=== PATIENT | female | born 1950 | race Caucasian/White ===

== ENCOUNTER → 2016-10-14 | Outpatient (CLI) | payer BC ==
[~2016-10-14] MED LIST: AMLO-110 PO; BENA20TA14 PO; CHOL200010; CITA20TA9 PO; DOCU-94 PO; LAMO100T16 PO; LEVO112T2 PO; OXYC1TAB3 PO; PANT40TA PO; PRAV40TA PO; QUET1TAB13 PO
[2016-10-14 13:37] LABS: BLOOD UREA NITROGEN 11 mg/dl (7-18); BUN/CREATININE RATIO 13.3 (10-20); CALCIUM 9.5 mg/dl (8.5-10.1); CARBON DIOXIDE 29 mmol/L (21-32); CHLORIDE 107 mmol/L (98-107); CREATININE 0.83 mg/dl (0.60-1.20); GLUCOSE 81 mg/dl (70-99); PHOSPHORUS 4.1 mg/dl (2.5-4.9); POTASSIUM 3.4 mmol/L (3.5-5.1); SODIUM 143 mmol/L (136-145)
== END | disposition home or self-care (01) ==
LOC: C.LABMFLN 10:18
PROVIDERS: ATTEND Family Medicine
DX: E87.6 Hypokalemia (principal)

== ENCOUNTER → 2017-03-14 | Outpatient (CLI) | payer BC ==
[~2017-03-14] MED LIST changes: +HYDR-5688 PO; -OXYC1TAB3 PO; +PRAV20TA2 PO; +SRQ/200 PO; +ZNTT/150 PO
--- NOTE | 2017-03-14 16:01 | MAMMOGRAPHY REPORT ---
BILATERAL DIGITAL SCREENING MAMMOGRAM WITH CAD: 03/14/2017 CLINICAL HISTORY: Routine screening. TECHNIQUE: Bilateral CC, MLO and XCCL views were obtained. Current study was also evaluated with a C Excelsoftuter Aided Detection (CAD) system. COMPARISON: Comparison is made to exams dated: 03/11/2016 mammogram, 01/24/2015 mammogram - [facility], 09/28/2014 mammogram, 09/25/2012 mammogram, 02/11/2011 mammogram, and 09/02/2010 kaur mogram. BREAST COMPOSITION: The tissue of both breasts is almost entirely fatty. FINDINGS: There are scattered bilateral benign-appearing round and punctate microcalcifications. No new suspicious mass, architectural distortion or cluster of microcalcifications is seen. IMPRESSION: ACR BI-RADS CATEGORY 1: NEGATIVE There is no mammographic evidence of malignancy. A 1 year screening mammogram is recommended. The pa tient will receive written notification of the results. Approximately 10% of breast cancers are not detected with mammography. A negative mammographic report should not delay biopsy if a clinically suggestive mass is present. Coco James M.D. ay/:03/14/2017 15:39:12 Pay Station Attendant: Aquilino ZHONG(R)(M), [facility] letter sent: Normal 1/2 BI-RADS Code: ACR BI-RADS Category 1: Negative
== END | disposition home or self-care (01) ==
LOC: C.MAMM 14:03
PROVIDERS: ATTEND Family Medicine
DX: Z12.31 Encounter for screening mammogram for malignant neoplasm of breast (principal)

== ENCOUNTER → 2017-05-19 | Outpatient (CLI) | payer BC ==
[2017-05-19 14:11] LABS: ALT/SGPT 25 U/L (12-78); AST/SGOT 20 U/L (15-37); BLOOD UREA NITROGEN 13 mg/dl (7-18); BUN/CREATININE RATIO 17.3 (10-20); CALCIUM 8.9 mg/dl (8.5-10.1); CARBON DIOXIDE 28 mmol/L (21-32); CHLORIDE 109 mmol/L (98-107); CREATININE 0.73 mg/dl (0.60-1.20); GLUCOSE 85 mg/dl (70-99); POTASSIUM 3.5 mmol/L (3.5-5.1); SODIUM 142 mmol/L (136-145); TOTAL IRON BINDING CAPACITY 313 mcg/dl (250-450)
[2017-05-19 14:13] LABS: ALB/GLOB RATIO 0.9 (0.9-2); ALKALINE PHOSPHATASE 85 U/L (45-117); FERRITIN 21.5 ng/ml (8.0-388.0)
[2017-05-19 14:48] LABS: THYROID STIMULATING HORMONE 2.69 uIu/ml (0.300-4.500)
== END | disposition home or self-care (01) ==
LOC: C.LABMFLN 07:48
PROVIDERS: ATTEND Family Medicine
DX: E03.9 Hypothyroidism, unspecified (principal); I10 Essential (primary) hypertension; Z98.84 Bariatric surgery status; E55.9 Vitamin D deficiency, unspecified

== ENCOUNTER → 2017-06-23 | Outpatient (CLI) | payer BC ==
--- NOTE | 2017-06-23 13:09 | DIAGNOSTIC IMAGING REPORT ---
VIDEO SWALLOW CLINICAL HISTORY: 67 years-old Female presenting with DYSPHAGIA, history of hiatal hernia and Schatzki's ring. TECHNIQUE: Video fluoroscopic evaluation of swallowing was performed in the AP and lateral projections in conjunction with speech pathology. The patient was administered various textures, including nectar-thick and thin liquid barium, a barium coated wafer, and barium pudding. COMPARISON: None. FINDINGS: There is normal hyoid excursion and epiglottic deflection. Mild residual noted in the hypopharynx, which cleared with additional swallows. Small anterior osteophytes at C6-7 exerts mild mass effect on the esophagus without evidence of an impact on functional swallowing. Intraesophageal reflux upon administration of nectar thick liquids with a standing column noted in the upper esophagus. This resulted in regurgitation. At this point the study was terminated. Fluoroscopy dosage (mGy): Not available. Fluoroscopy time: 2.5 minutes. Number of fluoroscopic spot images: 0. IMPRESSION: 1. Early termination of the examination secondary to intraesophageal reflux and regurgitation. 2. Please see the speech pathologist report for detailed findings and recommendations. Electronically signed by: Grey Gustafson M.D. 06/23/2017 1:07 PM Dictated Date/Time: 06/23/2017 1:03 PM
--- NOTE | 2017-06-23 14:13 | SWALLOWING EVALUATION ---
HISTORY: This 67 year-old woman, from home, was referred for a VFSS at [facility] secondary to complaints of vomiting and only being able to consume minimal amounts. She states that she has been experiencing these issues for 8 months. She also states that she had a Bariatric Sleeve placed (date unknown). Other past medical history includes: GERD, HTN, thyroid disorder. EGD noted Hietal hernia with Schatzki's ring, erosion at GEJ, and past dilatation. Currently the patient's diet level is regular with thins she is very aware of GERD precautions and foods that are tolerable for her to consume. PROCEDURE: The patient was seen in the Radiology Department of [facility] for the VFSS. Cursory examination of the oral cavity revealed adequate dentition. Movement of the articulators was WNL. The patient was seated on a standard chair and was viewed in both the Anterior-Posterior (A-P) and Lateral planes. Volitional phonation exercises completed in the A-P plane revealed bilateral vocal fold movement and vocal intensity within functional limits. In the lateral plane, the patient was given the following barium-infused boluses: 1 tsp thin barium with oral hold 1x, self presented single cup swallow-thin barium 1x, self presented serial cup swallow 1x. 1 tsp nectar thick barium with oral hold 1x, self presented single cup swallow- nectar thick barium 1x, self presented serial cup swallows 1x. Esophageal scan was completed however no food was presented for this as it was remaining from previously accepted food items. *Testing was discontinued after nectar thick liquids were vomited secondary to retrograde flow through the PES. RESULTS: Oral Phase: Pt. had no labial escape of any food or liquid items presented. Pt. demonstrated a cohesive bolus between tongue and palatal seal. Timely and efficient chewing and mashing was observed with all consistencies as well as brisk tongue motion and complete oral clearance. Initiation of pharyngeal swallow began with bolus head in the valleculae. Overall WFL for oral phase of swallow. Pharyngeal Phase: Soft Palate Elevation was complete for all boluses. Laryngeal elevation was slightly reduced however movement of thyroid cartilage with complete approximation of arytenoids to epiglottic base. Anterior Hyoid excursion was WFL and complete epiglottic inversion noted. Laryngeal Vestibular closure was complete and a thin column of barium noted in laryngeal vestibule as well as on the valleculae. This was cleared with double swallow. Tongue base retraction was noted with all consistencies and tongue base made effective contact with posterior pharyngeal wall throughout study. Mild pharyngeal residue was observed and able to be cleared with double swallow. Overall WFL for pharyngeal phase of the swallow. Pt. did NOT aspirate or penetrate thins or nectar food items presented. Esophageal Phase: Opening and closing of the UES noted however retrograde flow through the PES was present. Pt. presented with Severe Esophageal dysfunction with violent retrograde motion resulting in vomiting. Radiology report indicates: Intraesophageal reflux upon administration of nectar thick liquids with a standing column noted in the upper esophagus. This resulted in regurgitation. At this point the study was terminated. SUMMARY/RECOMMENDATIONS: Overall pt. presented as WFL for oral-pharyngeal stages of the swallow. Testing was discontinues after nectar thick liquids were vomited secondary to violent retrograde flow through the PES. Recommendin. SLIPPERY moist regular diet with thin liquids. 2. GI Consult 3. GERD precautions - upright for 30 min after all intake, no intake 30 min before bed, keep head of bed elevated at least 30 degrees at all times, alternate consistencies. Pt. was given written GERD precautions and diet recommendations. GI consult is impetrative for pt. to continue to functionally accept oral intake. Thank you for referral of this patient. Please contact me at if any additional information is needed.
== END | disposition home or self-care (01) ==
LOC: C.RAD 11:08
PROVIDERS: ATTEND Internal Medicine Gastroenterology
DX: R13.10 Dysphagia, unspecified (principal); K21.9 Gastro-esophageal reflux disease without esophagitis; R11.10 Vomiting, unspecified

== ENCOUNTER 2017-07-15 13:19 | Emergency (ER) | payer BC ==
[~2017-07-15] VITALS: Ht 171.5 cm; Wt 116.5 kg
[~2017-07-15 13:19] MED LIST changes: -HYDR-5688 PO; -PRAV20TA2 PO; -SRQ/200 PO; -ZNTT/150 PO
[2017-07-15 13:21] VITALS: TEMP 37.1; Ht 171.5 cm; Wt 116.5 kg
[2017-07-15] MEDS ORDERED: ZNTT/150 PO (13:38)
[2017-07-15] MEDS ORDERED: PRAV20TA2 PO (13:38)
[2017-07-15] MEDS ORDERED: SRQ/200 PO (13:38)
--- NOTE | 2017-07-15 13:58 | DIAGNOSTIC IMAGING REPORT ---
R HAND MIN 3 VIEWS ROUTINE HISTORY: 67 years-old Female hand injury; attn little finger acute right hand injury with pain of the fifth digit COMPARISON: None available TECHNIQUE: 4 views of the right hand FINDINGS: Severe first carpometacarpal osteoarthritis is noted. Mild periarticular osteopenia. There is mild flexion of the interphalangeal joints which mildly limits the study. Acute mildly impacted fracture involves the proximal metaphyseal portion of the fifth proximal phalanx with moderate associated soft tissue swelling. There may be intra-articular extension of the fracture without significant displacement or angulation. IMPRESSION: 1. Acute nondisplaced mildly impacted fracture involves the base of the fifth proximal phalanx with possible intra-articular extension into the adjacent metacarpal phalangeal joint. 2. Degenerative changes as above with osteopenia. The above report was generated using voice recognition software. It may contain grammatical, syntax or spelling errors. Electronically signed by: Jose Seaman M.D. 07/15/2017 1:56 PM Dictated Date/Time: 07/15/2017 1:53 PM
[2017-07-15] MEDS ORDERED: HYDR-5688 PO (14:20)
[2017-07-15 14:26] VITALS: BP 156/92; PULSE 68; O2SAT 96
--- NOTE | 2017-07-15 18:18 | EMERGENCY ROOM VISIT NOTE ---
ED Visit Note First contact with patient: 13:21 Chief Complaint: I hurt my left little finger. History of Present Illness: Ms. Fernandez is a 67-year-old white female who ambulates into the ED accompanied by female friend complaining of left little finger pain. Patient reports less than an hour ago hurt dog came into the house and she notice his pulse was bleeding. She went to see what his injury was and placed her left hand under his collar. The dog twisted and injured her left little finger. Currently she is complaining of a severe throbbing and sharp pain over the proximal phalanx of the little finger. She rates her discomfort 10/10. Her pain is nonradiating. Her pain worsens with palpation and flexion and extension of the MCP and PIP joint of the little finger. She has not identified any alleviating factors related to the pain. She is not taken any medications for pain prior to arrival at the hospital. Associated with her pain she reports she has a tingling sensation through the left little finger. She denies any wrist pain, other hand pain, other finger pain. She also denies any previous significant injuries or surgeries the little finger. Review of Systems: As noted above in history of present illness. Past Medical History: Hypertension, hiatal hernia, status post cholecystectomy and gastric sleeve. Current Medications: Norvasc, Synthroid, Celexa, Colace, Lamictal, vitamins, Pravachol, Seroquel, Zantac. Allergies to Medications: Penicillin, propranolol, tetracycline. Social History: Patient is currently employed; she feels safe in her home environment; she denies tobacco and alcohol use. Physical Examination: Vital Signs: Date Time Temp Pulse Resp B/P (MAP) Pulse Ox O2 Delivery O2 Flow Rate FiO2 07/15/17 14:26 68 20 156/92 96 07/15/17 13:21 37.1 66 15 164/109 96 Room Air GENERAL: 67-year-old female in moderate distress due to pain, nontoxic-appearing , afebrile and hemodynamically stable. NEUROLOGICAL: Awake, alert and oriented to person, place and time. Answering questions appropriately and following commands. SKIN: Warm, dry and pink. No soft tissue trauma noted. LEFT UPPER EXTREMITY: No gross bony deformity. No tenderness throughout the wrist. Moderate tenderness over the fifth MCP joint and proximal phalanx. Moderate swelling and ecchymosis over the proximal base of the proximal phalanx and fifth MCP joint. She refused to do range of motion exercises at this area due to pain. Throughout the little finger and rest of the hand the skin was warm and pink and capillary refill is brisk. She had difficulty perceiving light sensations through the little finger but not through the other fingers. ED Course: Patient is assessed as noted above. Patient's medication list was reviewed. Patient was offered pain medication and refused. Left hand x-rays: Were read by myself and the radiologist showing an acute nondisplaced mildly impacted fracture at the base of the fifth proximal thumb with possible intra-articular extension of the left hand. Radiologist also notes moderate degenerative changes. Patient was placed in a long finger splint. Patient was educated about today's findings and instructed on her treatment plan ; she verbalized understanding and agreement with this plan. Clinical Impression: Fracture of the fifth proximal phalange of the left hand. Disposition: Patient discharged home in stable condition accompanied by a female friend; prior to departure she was reassessed and subjectively reported she was feeling better and rated her discomfort 7/10. Plan: Comfort measures were discussed with the patient including rest, ice, splint use and she was placed on a sliding pain scale of acetaminophen and [place]; appropriate narcotic precautions were discussed with the patient and her name was checked in the state database and no red flags were noted. Patient was encouraged to follow-up with her data management specialist for definitive care and treatment. Patient was encouraged return ED for worsening/uncontrolled pain, uncontrolled swelling, worsening finger numbness/tingling or any new/concerning symptoms.
== END 2017-07-15 14:27 | disposition home or self-care (01) ==
LOC: C.EDB 13:21 → C.EDD 14:27
DX: S62.617A Displaced fracture of proximal phalanx of left little finger, initial encounter for closed fracture (principal); X50.9XXA Other and unspecified overexertion or strenuous movements or postures, initial encounter; I10 Essential (primary) hypertension

== ENCOUNTER → 2018-01-27 | Outpatient (CLI) | payer BC ==
[~2018-01-27] MED LIST changes: -BENA20TA14 PO; -PANT40TA PO; +PRAV20TA2 PO; -PRAV40TA PO; -QUET1TAB13 PO; +RANI150T85 PO; +SRQ/200 PO
[2018-01-27 13:33] LABS: ALT/SGPT 21 U/L (12-78); AST/SGOT 20 U/L (15-37); BLOOD UREA NITROGEN 17 mg/dl (7-18); CALCIUM 9.1 mg/dl (8.5-10.1); CARBON DIOXIDE 29 mmol/L (21-32); CREATININE 0.77 mg/dl (0.60-1.20); GLUCOSE 86 mg/dl (70-99); POTASSIUM 3.3 mmol/L (3.5-5.1); SODIUM 140 mmol/L (136-145)
[2018-01-27 13:48] LABS: ALBUMIN 3.2 gm/dl (3.4-5.0); ALKALINE PHOSPHATASE 92 U/L (45-117); CHOLESTEROL 184 mg/dl (0-200); LDL CHOLESTEROL CALCULATED 106 mg/dl; PHOSPHORUS 3.5 mg/dl (2.5-4.9); TOTAL PROTEIN 7.2 gm/dl (6.4-8.2)
== END | disposition home or self-care (01) ==
LOC: C.LABMFLN 08:05
PROVIDERS: ATTEND Family Medicine
DX: I10 Essential (primary) hypertension (principal)

== ENCOUNTER → 2018-05-09 | Outpatient (CLI) | payer BC ==
[~2018-05-09] MED LIST changes: +ACET-1256 PO; -AMLO-110 PO; +AMLO5TAB3 PO; +ATV/1 PO; +BENA10TA10 PO; +CALC-51 PO; -CITA20TA9 PO; -DOCU-94 PO; +MULT-506 PO; +PARO1TAB27 PO; +POTA10CA28 PO; +PRLSR20 PO; -RANI150T85 PO
--- NOTE | 2018-05-09 14:35 | DIAGNOSTIC IMAGING REPORT ---
CHEST 2 VIEWS ROUTINE HISTORY: Preop. COMPARISON: None. FINDINGS: The lungs are clear. Cardiac silhouette is normal in size. No pleural effusions. No pneumothorax. IMPRESSION: No acute process. Electronically signed by: Rishi Baldwin M.D. 05/09/2018 2:34 PM Dictated Date/Time: 05/09/2018 2:30 PM
[2018-05-09 16:13] LABS: BASO % 0.2 %; BASO ABS # 0.01 K/uL (0-0.2); EOS % 0.2 %; EOS ABS # 0.01 K/uL (0-0.5); HEMOGLOBIN 13.9 g/dL (12.0-16.0); IG# 0.01 K/uL (0.00-0.02); LYMPH % 35.3 %; LYMPH ABS # 1.47 K/uL (1.2-3.4); MEAN CELL VOLUME 94.1 fL (80-100); MEAN CORPUSCULAR HEMOGLOBIN 32.7 pg (25-34); MEAN CORPUSCULAR HGB CONC 34.8 g/dl (32-36); MEAN PLATELET VOLUME 11.3 fL (7.4-10.4); MONO % 9.6 %; NEUT % 54.5 %; NEUT ABS # 2.26 K/uL (1.4-6.5); PLATELET COUNT 185 K/uL (130-400); RED CELL DISTRIBUTION WIDTH SD 44.6 fL (36.4-46.3); WHITE BLOOD COUNT 4.16 K/uL (4.8-10.8)
[2018-05-09 16:19] LABS: ALBUMIN 3.5 gm/dl (3.4-5.0); BLOOD UREA NITROGEN 21 mg/dl (7-18); CALCIUM 8.5 mg/dl (8.5-10.1); CARBON DIOXIDE 26 mmol/L (21-32); CREATININE 0.84 mg/dl (0.60-1.20); GLUCOSE 89 mg/dl (70-99); POTASSIUM 4.4 mmol/L (3.5-5.1); SODIUM 138 mmol/L (136-145)
[2018-05-10 07:16] LABS: HEMOGLOBIN A1C 5.4 % (4.5-5.6)
== END | disposition home or self-care (01) ==
LOC: C.CPL 13:32
PROVIDERS: ATTEND Orthopaedic Surgery Sports Medicine
DX: Z01.818 Encounter for other preprocedural examination (principal); Z01.810 Encounter for preprocedural cardiovascular examination; Z01.812 Encounter for preprocedural laboratory examination

== ENCOUNTER 2018-05-24 05:06 | Inpatient (IN) | payer BC ==
[2018-04-27 15:48] VITALS: BMI 39.0
[2018-05-09 13:41] VITALS: BMI 45.0
--- NOTE | 2018-05-09 13:57 | PAT Medication Instructions ---
Service Date May 09, 2018. Current Home Medication List Acetaminophen (Tylenol), 1,000 MG PO PRN Amlodipine (Norvasc), 5 MG PO QAM Benazepril (Lotensin), 10 MG PO BID Cholecalciferol (Vitamin D), 2,000 UNITS BID Lamotrigine (Lamictal), 50 MG PO QPM Levothyroxine Sodium (Synthroid), 112 MCG PO QAM Lorazepam (Ativan), 1 MG PO PRN Multivitamin (Multivitamin), 2 TAB PO QAM Omeprazole (Prilosec), 20 MG PO QAM Paroxetine (Paxil), 20 MG PO QAM Potassium Chloride (Micro-K Ext Rel), 10 MEQ PO TID Pravastatin Sodium (Pravachol), 20 MG PO QPM Quetiapine Fumarate (Seroquel), 200 MG PO HS [Calcium], 600 MG PO NOON/HS Medication Instructions For Your Scheduled Surgery - Hold the following medications the morning of surgery: Benazepril (Lotensin), 10 MG PO BID Cholecalciferol (Vitamin D), 2,000 UNITS BID Multivitamin (Multivitamin), 2 TAB PO QAM Potassium Chloride (Micro-K Ext Rel), 10 MEQ PO TID [Calcium], 600 MG PO NOON/HS - Take the following medications the morning of surgery with a sip of water: Acetaminophen (Tylenol), 1,000 MG PO PRN (okay to take up to 4 hours prior to surgery if needed) Amlodipine (Norvasc), 5 MG PO QAM Levothyroxine Sodium (Synthroid), 112 MCG PO QAM Lorazepam (Ativan), 1 MG PO PRN (if needed) Omeprazole (Prilosec), 20 MG PO QAM Paroxetine (Paxil), 20 MG PO QAM - Take the following medications as scheduled the night before surgery: Acetaminophen (Tylenol), 1,000 MG PO PRN (if needed) Benazepril (Lotensin), 10 MG PO BID Cholecalciferol (Vitamin D), 2,000 UNITS BID Lamotrigine (Lamictal), 50 MG PO QPM Lorazepam (Ativan), 1 MG PO PRN (if needed) Potassium Chloride (Micro-K Ext Rel), 10 MEQ PO TID Pravastatin Sodium (Pravachol), 20 MG PO QPM [Calcium], 600 MG PO NOON/HS Quetiapine Fumarate (Seroquel), 200 MG PO HS If you have any questions please call us at [phone] or [phone] or [phone]
[2018-05-24] VITALS (12 sets, daily range): BP systolic 92–161; BP diastolic 60–90; PULSE 66–88; TEMP 36.4–36.8; O2SAT 73–100; Ht 172.7 cm; Wt 133.9 kg
[~2018-05-24] VITALS: Ht 172.7 cm; Wt 133.9 kg
--- NOTE | 2018-05-24 00:19 | HISTORY & PHYSICAL EXAMINATION ---
DATE OF ADMISSION: 05/24/2018 CHIEF COMPLAINT: Right knee pain. HISTORY OF PRESENT ILLNESS: This is a 68-year-old female patient of Dr. Gregory complaining of chronic right knee pain, longstanding, now progressively getting worse. The patient has been diagnosed with end-stage osteoarthritis per clinical and radiographic exams. The patient has failed conservative treatment including intraarticular injections, anti-inflammatories, Tylenol, and the use of a cane. The patient has increased pain with weightbearing activities and her pain does interfere with her activities of daily living. PAST MEDICAL HISTORY: Hypertension, anxiety, hypothyroidism, osteoarthritis, acid reflux, obesity. SOCIAL HISTORY: Nonsmoker, nondrinker. FAMILY HISTORY: Noncontributory. REVIEW OF SYSTEMS: Chronic right knee pain, otherwise denies any shortness of breath, chest pain, nausea, vomiting, or any other joint complaints. PAST SURGICAL HISTORY: Gastric sleeve, gallbladder, tonsils, and wrist fracture. MEDICATIONS: Potassium 10 mEq 3 times a day, amlodipine 20 mg daily, benazepril 10 mg twice daily, Paxil 20 mg daily, lamotrigine 100 mg [id number] twice daily, levothyroxine 112 mcg daily, calcium 600 daily, Seroquel 200 mg twice daily, pravastatin 20 mg one-half tablet daily, Voltaren 1% topical gel 4 times daily to the affected area. ALLERGIES: Include PROPRANOLOL, PENICILLIN, TETRACYCLINE. TETRACYCLINE DOES CAUSE ANAPHYLAXIS. PHYSICAL EXAMINATION: GENERAL: Well-developed, well-nourished 68-year-old female, in no acute distress. She is alert and oriented x3 and pleasant. HEENT: Normocephalic, atraumatic. Extraocular motions are intact. Pupils are equal and reactive to light. HEART: Regular rate and rhythm. No murmurs appreciated. LUNGS: Clear. ABDOMEN: Soft and nontender. Bowel sounds are present. EXTREMITIES: Right knee reveals 0-120 degrees of motion. She has a neutral alignment with mild effusion. The patient is obese. Knee is stable. She has 5/5 strength. NEUROLOGIC: Neurovascularly, she is intact in her right lower extremity. DIAGNOSES: Right knee end-stage osteoarthritis, hypertension, anxiety, hypothyroidism, osteoarthritis, acid reflux, obesity. PLAN: The patient was advised of her diagnosis. Indications, risks, benefits, postop course have all been reviewed. The patient wished to proceed with a right total knee arthroplasty. Necessary consent forms, preoperative testing, clearances will be obtained.
[2018-05-24] MEDS ORDERED: METOCLOPRAMIDE HCL 10 MG TAB PO SCH (06:00)
[2018-05-24] MEDS ORDERED: FAMOTIDINE 20 MG TAB PO SCH (06:00)
[2018-05-24] MEDS ORDERED: ROPIVACAINE 5MG/ML 30 ML 150 MG, BUPIVACAINE 0.5% MPF INJ 30 ML, EpINEphrine HCL INJ 0.... INFIL SCH ×8 (06:00)
[2018-05-24] MEDS ORDERED: DEXAMETHASONE 4 MG TAB PO SCH (06:00)
[2018-05-24] MEDS ORDERED: LACTATED RINGER'S 1000ML 1,000 ML IV SCH (06:00)
[2018-05-24] MEDS ORDERED: LACTATED RINGER'S 1000ML 500 ML IV SCH (06:00)
[2018-05-24] MEDS ORDERED: VANCOMYCIN IV 2,000 MG in SODIUM CHLORIDE 0.9% 500ML 500 ML IV SCH ×2 (06:00→18:00)
[2018-05-24] MEDS ORDERED: GABAPENTIN 300 MG CAP PO SCH (06:00)
[2018-05-24] MEDS ORDERED: ACETAMINOPHEN 500 MG TAB PO SCH (06:00)
[2018-05-24] MEDS ORDERED: CeleBREX 200 MG CAP PO SCH (06:00)
[2018-05-24] MEDS ORDERED: BUPIVACAINE 0.5 % 5 MG/1 ML PF 10ML VIAL ONE (06:25)
[2018-05-24] MEDS ORDERED: ROPIVACAINE 0.5% 5 MG/ML 30 ML VIAL ONE (06:25)
[2018-05-24] MEDS ORDERED: FENTANYL CITRATE INJ 50 MCG/1 ML 2 ML VIAL ONE ×2 (06:29→08:00)
[2018-05-24] MEDS ORDERED: MIDAZOLAM HCL 1 MG/ML 2ML VIAL ONE (06:29)
--- NOTE | 2018-05-24 06:58 | History & Physical Bridge Note ---
H&P Re-Evaluation Bridge Note: I have examined the patient, reviewed the History & Physical and in the interval since the performance of the History & Physical I have noted the following changes of clinical significance: No changes noted
[2018-05-24] MEDS ORDERED: POVIDONE-IODINE OP SOLN 30 ML BTL ONE (07:01)
[2018-05-24] MEDS: TRANEXAMIC ACID INJ 1,000 MG x 2 Bags IV SCH ×4 (07:01→14:32)
[2018-05-24] MEDS ORDERED: BACITRACIN 50000 UNIT VIAL ONE (07:01)
[2018-05-24] MEDS ORDERED: ORTHO JOINT ANESTHETIC ONE (07:01)
[2018-05-24] MEDS ORDERED: HYDROmorphone INJ 2 MG/ML SYR/VIAL IV PRN (08:00)
[2018-05-24] MEDS ORDERED: ONDANSETRON INJ 2 MG/ML 2 ML VIAL IV PRN (08:00)
[2018-05-24] MEDS ORDERED: EpHEDrine SULFATE INJ 50 MG/ML AMP IV PRN (08:00)
[2018-05-24] MEDS ORDERED: ATROPINE SULFATE 0.1 MG/ML 5ML SYR IV PRN (08:00)
[2018-05-24] MEDS ORDERED: PHENYLEPHRINE 100MCG/ML 5ML SYR IV PRN (08:00)
[2018-05-24] MEDS ORDERED: HYDROmorphone INJ 2 MG/ML SYR/VIAL ONE (08:26)
[2018-05-24] MEDS ORDERED: ROCURONIUM BROMIDE 10 MG/ML 5 ML VIAL ONE ×2 (08:53→11:27)
[2018-05-24] MEDS ORDERED: DEXAMETHASONE SOD INJ 4 MG/ML VIAL ONE (08:53)
[2018-05-24] MEDS ORDERED: ONDANSETRON INJ 2 MG/ML 2 ML VIAL ONE ×2 (08:53→09:04)
[2018-05-24] MEDS ORDERED: PROPOFOL IV EMULSION 10 MG/ML 20 ML VIAL ONE (08:53)
[2018-05-24] MEDS ORDERED: SUCCINYLCHOLINE CHLORIDE 20 MG/ML 10 ML VIAL IV ONE (08:53)
[2018-05-24] MEDS ORDERED: GLYCOPYRROLATE INJ 0.2 MG/ML VIAL ONE ×2 (08:54→12:34)
[2018-05-24] MEDS ORDERED: NEOSTIGMINE METHYLSULFATE 5 MG/5 ML SYR ONE (08:54)
[2018-05-24] MEDS ORDERED: LIDOCAINE HCL 2% 2 ML VIAL (20MG/ML) ONE (08:54)
--- NOTE | 2018-05-24 10:00 | [facility] Post Operative Brief Note ---
Immediate Operative Summary Operative Date May 24, 2018. Pre-Operative Diagnosis Right Knee End-Stage Osteoarthritis,morbid obesity Post-Operative Diagnosis Right Knee End-Stage Osteoarthritis,morbid obesity Procedure(s) Performed Right Total Knee Arthroplasty,increased difficulty due to morbid obesity bmi 44.9,application superficial wound vac Surgeon Dr Markham Salary And Wage Administrator Surgeon(s) Alfonso Barksdale PA-C Estimated Blood Loss 5CC Findings Consistent with Post-Op Diagnosis Specimens A: Right Knee Bone and Tissue Drains 2 hemovac Anesthesia Type General Regional Complication(s) none Disposition Accompanied Pt To Recover: no Disposition: Recovery Room / PACU Overlapping Procedure I was present for: the critical portions of procedure.
[2018-05-24] MEDS ORDERED: SILVER SULFADIAZINE 1% CR 50 GM JAR EXT PRN (10:30)
[2018-05-24] MEDS ORDERED: BISACODYL 10 MG SUPP PR PRN (10:30)
[2018-05-24] MEDS ORDERED: MoRPHine SULFATE 2 MG/ML CARP IV PRN (10:30)
[2018-05-24] MEDS ORDERED: MAGNESIUM HYDROXIDE SUSP 30 ML UDC PO PRN (10:30)
[2018-05-24] MEDS ORDERED: VANCOMYCIN CONSULT ACTIVE PRN (10:30)
[2018-05-24] MEDS ORDERED: NALOXONE HCL 0.4 MG/1 ML VIAL/CARP ONE (10:36)
[2018-05-24] MEDS ORDERED: FLUMAZENIL 0.1 MG/1 ML 10 ML VIAL IV ONE (10:36)
--- NOTE | 2018-05-24 10:40 | [facility] Operative Report ---
Operative Report Operative Date May 24, 2018. Pre-Operative Diagnosis Right Knee End-Stage Osteoarthritis,morbid obesity, BMI 44.9 Post-Operative Diagnosis Same Procedure(s) Performed Right total knee arthroplasty, application superficial wound VAC, increased difficulty morbid obesity BMI 44.[address] Markham Grocery Store Manager Surgeon(s) Alfonso Barksdale PA-C Estimated Blood Loss 5CC Findings Severe end-stage osteoarthritis of the right knee chronic ACL tear tricompartmental DJD grade 4 DJD tricompartmental Specimens A: Right Knee Bone and Tissue Drains 2 hemovac Anesthesia General adductor nerve block orthomix Complication(s) None Disposition Recovery Room / PACU Indications 68-year-old female with known obesity status post gastric bypass surgery weight loss of between 100 to 200 pounds preop with severe bilateral tricompartmental end-stage osteoarthritis of the knees failed conservative management. Description of Procedure Patient taken to the operating room the size under attempted spinal anesthesia followed by general anesthesia and adductor nerve block right knee. Patient was placed supine on the operating table. A pneumatic tourniquet was placed about the obese right upper thigh. The right lower extremity was prepped and draped in sterile fashion. Knee exam demonstrated a very obese thigh obese knee no instability 0 through 130 range of motion lateral aligned patella with patellofemoral crepitation. The leg was elevated exsanguinated with an Esmarch bandage and pneumatic tourniquet was raised to 350 millimeters of mercury. Skin incised sharply in longitudinal fashion. Subcutaneous flaps elevated. Incision was made through the medial retinaculum extending up in the mid third of the quadriceps tendon and down to the medial tibial tubercle. Intra- articular findings demonstrated tricompartmental DJD grade 4 eburnated bone medial compartment grade 4 wear lateral patellofemoral joint with some bone loss lateral facet patella grade 4 chondral lesion lateral femoral condyle lateral tibia chronic ACL tear degenerative. The Gem total knee arthroplasty system was used. To expose the knee the infrapatellar fat pad was resected. The meniscal remnants and cruciate ligaments were resected. The anterior fat pad over the femur in the area of the anterior flange of the femoral component was resected. Lateral synovial bands release. The femur was exposed. An intramedullary drill hole was made into the canal. A guidewire was placed. Distal femoral cutting guide was adjusted to resect a 5 degree valgus cut with 8 millimeters distal femur resected. The knee was extended and a subperiosteal peel lateral release was performed around the patella. Patella width was measured and width was reproduced using a freehand cut technique and a 36 mm symmetrical patella component. The 3 drill holes were made and the excess lateral facet was beveled off to prevent any impingement. Attention was taken back to the femur which was exposed with retractors and the femoral sizing guide was pinned in position. The drill holes were placed in 3 of external rotation to match epicondylar axis. Femur sized for a 4 component. The 4-in-1 cutting block was placed and then the anterior posterior and chamfer cuts are made. The tibia was then subluxed. The external tibial cutting guide was just to make a perpendicular cut to the long axis of the tibia below the most deficient bone loss side. A lamina medical reception was used and the flexion extension gaps were balanced. All posterior osteophytes removed. All meniscal remnants were resected. The tibia exposed and the trial tibial component size 4 was externally rotated in line with the tibial tubercle and pinned in position. The punch for stem was used. The notch cutting device was centered appropriately and the femoral notch cut was made. The femoral trial was inserted. Trial tibial inserts were placed and size 13 gave balanced ligaments through flexion and extension. Patella tracking was assessed. The patella tracked centrally. The trial components were then removed and the orthomix anesthetic cocktail was injected per protocol. The knee was then copiously irrigated with pulsatile lavage antibiotic solution. Final components were then cemented with Simplex cement. Final components were triathlon [place] size 4 right posterior stabilized femoral component with size 4 primary tibial baseplate with 13 posterior stabilized polyethylene insert and S 36 x 10 mm patella. While the cement cured the Betadine soak was used per protocol. After cement cured further pulsatile lavage irrigation performed and 2 Hemovac drains were brought out laterally. The quadriceps tendon and medial retinaculum were closed with figure of 8 #1 Vicryl sutures. The knee was taken through full range of motion and the repair was secure. The subcutaneous tissues were closed with 2-0 Vicryl sutures. Skin was closed with jack. A superficial wound VAC was applied. Patient procedure well. Alfonso SHARMA was my physician executive staff assistant who assisted in patient positioning prepping and draping,leg positioning ,soft tissue retraction and intrument management and participated in the closing and will participate in postoperative care of the patient. The patient tolerated the procedure well. I attest to the content of the Intraoperative Record and any orders documented therein. Any exceptions are noted below.
--- NOTE | 2018-05-24 11:09 | DIAGNOSTIC IMAGING REPORT ---
RIGHT KNEE 2 VIEWS History: Right total knee arthroplasty. Degenerative arthritis. Postop. FINDINGS: The patient is status post a right total knee arthroplasty. The hardware is intact. No fracture or dislocation. Skin jack are in place. IMPRESSION: Right total knee arthroplasty. No evidence for hardware complication. Electronically signed by: Rishi Baldwin M.D. 05/24/2018 11:07 AM Dictated Date/Time: 05/24/2018 10:55 AM
--- NOTE | 2018-05-24 11:23 | Anesthesiology Progress Note ---
Anesthesia Post Op Note Date & Time May 24, 2018 at 11:23 Vital Signs Pain Intensity: 0 Vital Signs Past 12 Hours Date Time Temp Pulse Resp B/P (MAP) Pulse Ox O2 Delivery O2 Flow Rate FiO2 05/24/18 11:01 36.3 87 16 116/52 (78) 93 Nasal Cannula 3 05/24/18 10:57 140/82 05/24/18 10:54 88 17 05/24/18 10:54 87 17 89 05/24/18 10:52 118/82 05/24/18 10:49 88 16 05/24/18 10:49 88 16 94 05/24/18 10:47 129/64 05/24/18 10:44 90 20 05/24/18 10:44 90 20 94 05/24/18 10:43 88 30 93 05/24/18 10:43 88 30 05/24/18 10:42 137/65 05/24/18 10:38 90 17 05/24/18 10:38 90 17 95 05/24/18 10:37 129/57 05/24/18 10:33 94 18 94 05/24/18 10:33 95 18 05/24/18 10:32 143/49 05/24/18 10:29 135/49 05/24/18 10:28 96 20 05/24/18 10:28 96 20 94 05/24/18 10:28 36.3 95 18 135/49 (81) 93 Oxymask 10 05/24/18 05:58 36.4 66 20 161/77 95 Room Air Notes Mental Status: alert / awake / arousable, participated in evaluation Pt Amnestic to Procedure: Yes Nausea / Vomiting: adequately controlled Pain: adequately controlled Airway Patency, RR, SpO2: stable & adequate BP & HR: stable & adequate Hydration State: stable & adequate Anesthetic Complications: no major complications apparent
[2018-05-24] MEDS ORDERED: HydrALAZINE HCL 20 MG/ML VIAL IV. PRN (14:30)
[2018-05-24] MEDS: D5W AND 1/2NSS + 20MEQ KCL 1,000 ML IV SCH (14:34)
[2018-05-24] MEDS: ACETAMINOPHEN 500 MG TAB PO SCH ×2 (14:36→21:19)
[2018-05-24] MEDS: POTASSIUM CHLORIDE 10 MEQ TABCR PO SCH ×2 (14:36→21:19)
--- NOTE | 2018-05-24 14:39 | Medical Consult ---
Consultation Date of Consultation: May 24, 2018. Attending Physician: Drake Markham M.D. Reason for Consultation: Medical management History of Present Illness This is a 68 y/o female with a history of HTN, HLD, hypothyroidism, bipolar disorder, essential tremor, and GERD who presents s/p right TKA with Dr. Markham on 05/24 for medical management. The patient is sleepy postoperatively but rouses easily and answers questions appropriately. She denies any pain currently and states she has some numbness and tingling in her RLE. She main complaint is fatigue at this time. She has not yet passed gas or voided, but she feels she has to void now. The patient denies fevers, chills, sweats, chest pain, palpitations, claudication, cough, wheezing, shortness of breath, nausea, vomiting, abdominal pain, dysuria, hematuria, urinary retention, paralysis, weakness. 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) Allergies Coded Allergies: Penicillins (Verified Allergy, Unknown, UNKNOWN- A CHILD, 05/24/18) Propranolol (Verified Allergy, Unknown, MUSCLE SPASMS, 05/24/18) Tetracycline (Verified Allergy, Unknown, ANAPHYLAXIS, 05/24/18) NSAIDs (Verified Adverse Reaction, Unknown, pt not supposed to take orally d/t gastric bypass surgery, 05/24/18) Current Inpatient Medications Current Inpatient Medications Medications (Trade) Dose Ordered Sig/Jillian Route Start Time Stop Time Status Last Admin Dose Admin Lactated Ringer's 1,000 ml @ 15 mls/hr Q24H IV 05/24/18 06:00 05/25/18 05:59 Vancomycin HCl 2000 mg/Sodium Chloride 540 ml @ 200 mls/hr PREOP IV 05/24/18 06:00 05/25/18 05:59 05/24/18 05:44 200 MLS/HR Acetaminophen (Tylenol Tab) 1,000 mg PREOP PO 05/24/18 06:00 05/24/18 18:00 05/24/18 06:14 1,000 MG Celecoxib (CeleBREX CAP) 200 mg PREOP PO 05/24/18 06:00 05/24/18 18:00 Dexamethasone (Decadron Tab) 8 mg PREOP PO 05/24/18 06:00 05/24/18 18:00 05/24/18 06:14 8 MG Famotidine (Pepcid Tab) 20 mg PREOP PO 05/24/18 06:00 05/24/18 18:00 05/24/18 06:16 20 MG Gabapentin (Neurontin Cap) 300 mg PREOP PO 05/24/18 06:00 05/24/18 18:00 05/24/18 06:15 300 MG Metoclopramide HCl (Reglan Tab) 10 mg PREOP PO 05/24/18 06:00 05/24/18 18:00 05/24/18 06:16 10 MG Amlodipine Besylate (Norvasc Tab) 5 mg QAM PO 05/25/18 09:00 06/24/18 08:59 Lamotrigine (Lamictal Tab) 50 mg QPM PO 05/24/18 21:00 06/23/18 20:59 Levothyroxine Sodium (Synthroid Tab) 112 mcg DAILYBB PO 05/25/18 06:00 06/24/18 05:59 Miscellaneous Information (Order Awaiting Action) 1 ea QS N/A 05/24/18 16:00 06/23/18 15:59 Paroxetine HCl (pAXil TAB) 20 mg QAM PO 05/25/18 09:00 06/24/18 08:59 Potassium Chloride (Klor-Con M10) 10 meq TID PO 05/24/18 14:00 06/23/18 13:59 Pravastatin Sodium (Pravachol Tab) 20 mg QPM PO 05/24/18 21:00 06/23/18 20:59 Quetiapine Fumarate (seroQUEL TAB) 200 mg HS PO 05/24/18 21:00 06/23/18 20:59 Enalapril Maleate (Vasotec Tab) 10 mg BID PO 05/24/18 21:00 06/23/18 20:59 Potassium Chloride/Dextrose/ Sod Cl 1,000 ml @ 100 mls/hr Q10H IV 05/24/18 14:00 05/25/18 13:59 Vancomycin HCl 2000 mg/Sodium Chloride 540 ml @ 200 mls/hr Q12H IV 05/24/18 18:00 05/24/18 20:41 Oxycodone HCl (Roxicodone Immediate Rel Tab) 1 TABLET FOR PAIN RATING... Q4H PRN PO 05/24/18 10:30 06/07/18 10:29 Morphine Sulfate (MoRPHine SULFATE INJ) 2 mg Q4H PRN IV 05/24/18 10:30 06/07/18 10:29 Acetaminophen (Tylenol Tab) 1,000 mg Q8 PO 05/24/18 14:00 06/23/18 13:59 Magnesium Hydroxide (Milk Of Magnesia Susp) 30 ml Q6H PRN PO 05/24/18 10:30 06/23/18 10:29 Bisacodyl (Dulcolax Supp) 10 mg DAILY PRN SC 05/24/18 10:30 06/23/18 10:29 Senna (Senokot Tab) 17.2 mg HS PO 05/24/18 21:00 06/23/18 20:59 Docusate Sodium (coLACE CAP) 100 mg BID PO 05/24/18 21:00 06/23/18 20:59 Multivitamins (Multivitamin Tab) 1 tab QAM PO 05/25/18 09:00 06/24/18 08:59 Ondansetron HCl (Zofran Inj) 4 mg Q6H PRN IV 05/24/18 10:30 06/23/18 10:29 Pantoprazole Sodium (Protonix Tab) 40 mg QAM PO 05/25/18 09:00 06/24/18 08:59 Silver Sulfadiazine (Silvadene 1% Crm 50GM Jar) 1 appln BID PRN EXT 05/24/18 10:30 06/23/18 10:29 Rivaroxaban (Xarelto Tab) 10 mg Q24H PO 05/25/18 06:00 06/06/18 05:59 Review of Systems See HPI for pertinent positives and negatives. All other systems reviewed and negative. Physical Exam Date Time Temp Pulse Resp B/P (MAP) Pulse Ox O2 Delivery O2 Flow Rate FiO2 05/24/18 13:53 83 12 105/70 (82) 96 Oxymask 4.0 05/24/18 13:10 96 Oxymask 5.0 05/24/18 13:00 85 14 112/84 (93) 96 Oxymask 7.0 05/24/18 12:30 84 20 92/60 (71) 97 Oxymask 10.0 05/24/18 12:28 98 Oxymask 10.0 05/24/18 12:25 73 Oxymask 3.0 05/24/18 12:00 36.6 88 18 125/72 (89) 96 Oxymask 3.0 05/24/18 12:00 96 Oxymask 3.0 05/24/18 11:46 108/65 05/24/18 11:44 85 19 05/24/18 11:44 87 19 89 05/24/18 11:42 94/72 05/24/18 11:39 84 14 91 05/24/18 11:39 85 14 05/24/18 11:36 120/53 05/24/18 11:34 87 18 89 05/24/18 11:34 87 18 05/24/18 11:32 112/66 05/24/18 11:29 86 22 05/24/18 11:29 86 22 94 05/24/18 11:27 96/63 05/24/18 11:24 92 16 94 05/24/18 11:24 91 16 05/24/18 11:23 90 20 05/24/18 11:23 89 20 97 05/24/18 11:22 115/79 05/24/18 11:18 88 20 05/24/18 11:18 88 20 96 05/24/18 11:17 96/47 05/24/18 11:13 91 17 05/24/18 11:13 91 17 89 05/24/18 11:12 116/66 05/24/18 11:08 86 17 95 05/24/18 11:08 86 17 05/24/18 11:07 129/60 05/24/18 11:03 86 23 93 05/24/18 11:03 87 23 05/24/18 11:02 116/52 05/24/18 11:01 36.3 87 16 116/52 (78) 93 Nasal Cannula 3 05/24/18 10:58 88 14 05/24/18 10:58 88 14 92 05/24/18 10:57 140/82 05/24/18 10:54 88 17 05/24/18 10:54 87 17 89 05/24/18 10:52 118/82 05/24/18 10:49 88 16 05/24/18 10:49 88 16 94 05/24/18 10:47 129/64 05/24/18 10:44 90 20 05/24/18 10:44 90 20 94 05/24/18 10:43 88 30 93 05/24/18 10:43 88 30 05/24/18 10:42 137/65 05/24/18 10:38 90 17 05/24/18 10:38 90 17 95 05/24/18 10:37 129/57 05/24/18 10:33 94 18 94 05/24/18 10:33 95 18 05/24/18 10:32 143/49 05/24/18 10:29 135/49 05/24/18 10:28 96 20 05/24/18 10:28 96 20 94 05/24/18 10:28 36.3 95 18 135/49 (81) 93 Oxymask 10 05/24/18 05:58 36.4 66 20 161/77 95 Room Air General appearance: +Morbidly obese. Well-developed, well-nourished, no apparent distress Head: Normocephalic, atraumatic Eyes: Normal inspection, PERRL, EOMI ENT: Normal ENT inspection, hearing grossly normal, pharynx normal Neck: Supple, no JVD, trachea midline Respiratory/Chest: Lungs clear to auscultation, normal breath sounds, no respiratory distress Cardiovascular: Regular rate & rhythm, no gallop, no murmur Abdomen/GI: Normal bowel sounds, non-tender, soft Extremities/Musculoskeletal: +RLE wrapped in osmin bandage, hemovac in place. No calf tenderness, no pedal edema Neurological/Psych: +Sensation and pulses RLE intact. Lethargy but rouses easily and answers questions appropriately. Normal mood/affect, oriented x 3 Skin: Normal color, warm/dry, no rash Laboratory Results Last 24 Hours Test 05/24/18 05:26 Hepatitis C Antibody Screen NEG Assessment & Plan 68 y/o female with a history of HTN, HLD, hypothyroidism, bipolar disorder, essential tremor, and GERD who presents s/p right TKA with Dr. Markham on 05/24 for medical management. S/p right TKA--POD #0 -Pain management, DVT prophylaxis, and PT/OT as per primary team HTN, HLD--stable -Continue amlodipine 5 mg PO qd and pravastatin 20 mg PO hs -Hold benazepril (enalapril) for now until renal function checked/stable. PRP in the am -Cover with hydralazine 10 mg IV q6h prn SBP >180 Hypothyroidism--stable -TSH 3.05 05/18/18 -Continue Synthroid 112 mcg PO qd Bipolar disorder -Continue Lamictal 50 mg PO hs, Paxil 20 mg PO qd, Seroquel 200 mg PO hs GERD -Prilosec converted to Protonix Code Status -Level I, FULL RESUSCITATION STATUS Thank you for this consultation. We will continue to follow.
[2018-05-24] MEDS ORDERED: NURSING VERBAL MED ORDER ONE (15:45)
[2018-05-24] MEDS: DOCUSATE SODIUM 100 MG CAP PO SCH (21:18)
[2018-05-24] MEDS: QUETIAPINE FUMARATE 200 MG TAB PO SCH (21:18)
[2018-05-24] MEDS: PRAVASTATIN SOD 20 MG TAB PO SCH (21:18)
[2018-05-24] MEDS: SENNA 8.6 MG TAB PO SCH (21:19)
[2018-05-24] MEDS: PANTOprazole SOD 40 MG TAB PO SCH (23:53)
[2018-05-25 03:13] VITALS: BP 119/65; PULSE 76; TEMP 36.4; O2SAT 95
[2018-05-25] MEDS: D5W AND 1/2NSS + 20MEQ KCL 1,000 ML IV SCH ×2 (03:13→10:00)
[2018-05-25] MEDS: LEVOTHYROXINE 112 MCG TAB PO SCH (05:42)
[2018-05-25] MEDS: RIVAROXABAN 10 MG TAB PO SCH (05:42)
[2018-05-25] MEDS: ACETAMINOPHEN 500 MG TAB PO SCH ×3 (05:42→20:36)
[2018-05-25 07:06] VITALS: BP 131/77; PULSE 80; TEMP 37.1; O2SAT 97
[2018-05-25 07:13] LABS: HEMOGLOBIN 10.8 g/dL (12.0-16.0); MEAN CELL VOLUME 94.1 fL (80-100); MEAN CORPUSCULAR HEMOGLOBIN 31.8 pg (25-34); MEAN CORPUSCULAR HGB CONC 33.8 g/dl (32-36); MEAN PLATELET VOLUME 10.8 fL (7.4-10.4); PLATELET COUNT 162 K/uL (130-400); RED CELL DISTRIBUTION WIDTH CV 13.3 % (11.5-14.5); WHITE BLOOD COUNT 8.37 K/uL (4.8-10.8)
--- NOTE | 2018-05-25 07:43 | Orthopedic Progress Note ---
Orthopedic Progress Note Date of Service May 25, 2018. Subjective Post OP Day: 1 Reports: feeling well, Denies: complaints Objective calves soft nontender, N/V intact, dressing C/D/I, A&O x3, toes mobile, hemovac drainage (210ml latest shift) Date Time Temp Pulse Resp B/P (MAP) Pulse Ox O2 Delivery O2 Flow Rate FiO2 05/25/18 07:06 37.1 80 16 131/77 (95) 97 Nasal Cannula 2.0 05/25/18 03:13 36.4 76 16 119/65 (83) 95 Nasal Cannula 2.0 05/24/18 23:50 Nasal Cannula 2.0 05/24/18 23:08 36.8 84 17 110/68 (82) 95 Nasal Cannula 2.0 05/24/18 19:08 36.6 88 18 151/90 (110) 100 Room Air 05/24/18 15:15 36.5 81 18 114/70 (85) 98 Nasal Cannula 4.0 05/24/18 15:10 96 Nasal Cannula 2.0 05/24/18 13:53 83 12 105/70 (82) 96 Oxymask 4.0 05/24/18 13:10 96 Oxymask 5.0 05/24/18 13:00 85 14 112/84 (93) 96 Oxymask 7.0 05/24/18 12:30 84 20 92/60 (71) 97 Oxymask 10.0 05/24/18 12:28 98 Oxymask 10.0 05/24/18 12:25 73 Oxymask 3.0 05/24/18 12:00 36.6 88 18 125/72 (89) 96 Oxymask 3.0 05/24/18 12:00 96 Oxymask 3.0 05/24/18 11:46 108/65 05/24/18 11:44 85 19 05/24/18 11:44 87 19 89 05/24/18 11:42 94/72 05/24/18 11:39 84 14 91 05/24/18 11:39 85 14 05/24/18 11:36 120/53 05/24/18 11:34 87 18 89 05/24/18 11:34 87 18 05/24/18 11:32 112/66 05/24/18 11:29 86 22 8/15/18 11:29 86 22 94 15/18 11:27 96/63 815/18 11:24 92 16 94 15/18 11:24 91 16 815/18 11:23 90 20 8/15/18 11:23 89 20 97 815/18 11:22 115/79 815/18 11:18 88 20 15/18 11:18 88 20 96 15/18 11:17 96/47 15/18 11:13 91 17 815/18 11:13 91 17 89 15/18 11:12 116/66 15/18 11:08 86 17 95 15/18 11:08 86 17 15/18 11:07 129/60 15/18 11:03 86 23 93 15/18 11:03 87 23 1518 11:02 116/52 15/18 11:01 36.3 87 16 116/52 (78) 93 Nasal Cannula 3 05/24/18 10:58 88 14 1518 10:58 88 14 92 1518 10:57 140/82 15/18 10:54 88 17 15/18 10:54 87 17 89 15/18 10:52 118/82 15/18 10:49 88 16 15/18 10:49 88 16 94 15/18 10:47 129/64 15/18 10:44 90 20 1518 10:44 90 20 94 15/18 10:43 88 30 93 15/18 10:43 88 30 15/18 10:42 137/65 15/18 10:38 90 17 815/18 10:38 90 17 95 15/18 10:37 129/57 15/18 10:33 94 18 94 15/18 10:33 95 18 15/18 10:32 143/49 815/18 10:29 135/49 15/18 10:28 96 20 815/18 10:28 96 20 94 15/18 10:28 36.3 95 18 135/49 (81) 93 Oxymask 10 Laboratory Results 24 Hours: Test 05/25/18 06:20 Hematocrit 32.0 % Hemoglobin 10.8 g/dL Assessment & Plan Assessment: POD 1 s/p Right TKA Plan: PT/OT Planning for HH PT Inhouse Planning Pain Management: Morphine, PO Tylenol, Oxy IR DVT Prophylaxis: TEDs, SCDs, Xarelto Discharge Planning Discharge Planning: home with home health
[2018-05-25 07:44] LABS: CALCIUM 7.9 mg/dl (8.5-10.1); CREATININE 0.77 mg/dl (0.60-1.20); POTASSIUM 4.3 mmol/L (3.5-5.1)
[2018-05-25] MEDS ORDERED: PANTOprazole SOD 40 MG TAB PO ONE (08:30)
[2018-05-25] MEDS: MULTIVITAMIN TAB PO SCH (08:39)
[2018-05-25] MEDS: POTASSIUM CHLORIDE 10 MEQ TABCR PO SCH ×3 (08:40→20:39)
[2018-05-25] MEDS: DOCUSATE SODIUM 100 MG CAP PO SCH ×2 (08:40→20:35)
[2018-05-25] MEDS: AMLODIPINE BESYLATE 5 MG TAB PO SCH (08:40)
[2018-05-25] MEDS: PAROXETINE 20 MG TAB PO SCH (08:41)
[2018-05-25] MEDS: OXYCODONE HCL IR 5 MG TAB (IMMEDIATE RELEASE) PO PRN ×2 (08:41→16:14)
--- NOTE | 2018-05-25 09:51 | Anesthesiology Progress Note ---
Anesthesia Post Op Note Date & Time May 25, 2018 at 09:50 Vital Signs Pain Intensity: 3.0 Vital Signs Past 12 Hours Date Time Temp Pulse Resp B/P (MAP) Pulse Ox O2 Delivery O2 Flow Rate FiO2 05/25/18 07:20 Room Air 05/25/18 07:06 37.1 80 16 131/77 (95) 97 Nasal Cannula 2.0 05/25/18 03:13 36.4 76 16 119/65 (83) 95 Nasal Cannula 2.0 05/24/18 23:50 Nasal Cannula 2.0 05/24/18 23:08 36.8 84 17 110/68 (82) 95 Nasal Cannula 2.0 Notes Mental Status: alert / awake / arousable, participated in evaluation Pt Amnestic to Procedure: Yes Nausea / Vomiting: adequately controlled Pain: adequately controlled Airway Patency, RR, SpO2: stable & adequate BP & HR: stable & adequate Hydration State: stable & adequate Anesthetic Complications: no major complications apparent
--- NOTE | 2018-05-25 10:01 | Hospitalist Progress Note ---
Hospitalist Progress Note Date of Service May 25, 2018. Subjective Pt evaluation today including: conversation w/ patient, physical exam, chart review, lab review, review of inpatient medication list Pain: Controlled PO Intake: Tolerating PO diet Voiding: no voiding problems Patient reports feeling well. She states she does have knee pain but this is manageable. Her numbness and tingling are resolved. She is tolerating a PO diet well and voiding on her own without difficulty. She has not yet passed gas or had a bowel movement postop. The patient denies fevers, chills, sweats, chest pain, palpitations, claudication, cough, wheezing, shortness of breath, nausea, vomiting, abdominal pain, dysuria, hematuria, urinary retention, paralysis, weakness, numbness and tingling. Additional Comments: See HPI for pertinent positives and negatives. All other systems reviewed and negative. Objective Vital Signs Date Time Temp Pulse Resp B/P (MAP) Pulse Ox O2 Delivery O2 Flow Rate FiO2 05/25/18 07:20 Room Air 05/25/18 07:06 37.1 80 16 131/77 (95) 97 Nasal Cannula 2.0 05/25/18 03:13 36.4 76 16 119/65 (83) 95 Nasal Cannula 2.0 05/24/18 23:50 Nasal Cannula 2.0 05/24/18 23:08 36.8 84 17 110/68 (82) 95 Nasal Cannula 2.0 05/24/18 19:08 36.6 88 18 151/90 (110) 100 Room Air 05/24/18 15:15 36.5 81 18 114/70 (85) 98 Nasal Cannula 4.0 05/24/18 15:10 96 Nasal Cannula 2.0 05/24/18 13:53 83 12 105/70 (82) 96 Oxymask 4.0 05/24/18 13:10 96 Oxymask 5.0 05/24/18 13:00 85 14 112/84 (93) 96 Oxymask 7.0 05/24/18 12:30 84 20 92/60 (71) 97 Oxymask 10.0 05/24/18 12:28 98 Oxymask 10.0 05/24/18 12:25 73 Oxymask 3.0 05/24/18 12:00 36.6 88 18 125/72 (89) 96 Oxymask 3.0 8/15/18 12:00 96 Oxymask 3.0 15/18 11:46 108/65 8/15/18 11:44 85 19 8/15/18 11:44 87 19 89 8/15/18 11:42 94/72 815/18 11:39 84 14 91 15/18 11:39 85 14 15/18 11:36 120/53 05/24/18 11:34 87 18 89 18 11:34 87 18 15/18 11:32 112/66 815/18 11:29 86 22 815/18 11:29 86 22 94 05/24/18 11:27 96/63 05/24/18 11:24 92 16 94 05/24/ 11:24 91 16 05/24/18 11:23 90 20 18 11:23 89 20 97 18 11:22 115/79 05/24/18 11:18 88 20 05/24/18 11:18 88 20 96 18 11:17 96/47 05/24/18 11:13 91 17 05/24/18 11:13 91 17 89 05/24/18 11:12 116/66 05/24/18 11:08 86 17 95 05/24/18 11:08 86 17 05/24/18 11:07 129/60 05/24/18 11:03 86 23 93 15/18 11:03 87 23 18 11:02 116/52 05/24/18 11:01 36.3 87 16 116/52 (78) 93 Nasal Cannula 3 05/24/18 10:58 88 14 1518 10:58 88 14 92 1518 10:57 140/82 1518 10:54 88 17 15/18 10:54 87 17 89 1518 10:52 118/82 1518 10:49 88 16 1518 10:49 88 16 94 1518 10:47 129/64 1518 10:44 90 20 1518 10:44 90 20 94 18 10:43 88 30 93 18 10:43 88 30 05/24/18 10:42 137/65 05/24/18 10:38 90 17 05/24/18 10:38 90 17 95 05/24/18 10:37 129/57 05/24/18 10:33 94 18 94 05/24/18 10:33 95 18 05/24/18 10:32 143/49 05/24/18 10:29 135/49 05/24/18 10:28 96 20 05/24/18 10:28 96 20 94 05/24/18 10:28 36.3 95 18 135/49 (81) 93 Oxymask 10 Physical Exam Notes: General appearance: +Morbidly obese. Well-developed, well-nourished, no apparent distress Head: Normocephalic, atraumatic Eyes: Normal inspection, PERRL, EOMI ENT: Normal ENT inspection, hearing grossly normal, pharynx normal Neck: Supple, no JVD, trachea midline Respiratory/Chest: Lungs clear to auscultation, normal breath sounds, no respiratory distress Cardiovascular: Regular rate & rhythm, no gallop, no murmur Abdomen/GI: Normal bowel sounds, non-tender, soft Extremities/Musculoskeletal: +RLE wrapped in osmin bandage, hemovac in place. No calf tenderness, no pedal edema Neurological/Psych: Alert, normal mood/affect, oriented x 3 Skin: Normal color, warm/dry, no rash Laboratory Results Last 24 Hours Test 05/25/18 06:20 White Blood Count 8.37 K/uL Red Blood Count 3.40 M/uL Hemoglobin 10.8 g/dL Hematocrit 32.0 % Mean Corpuscular Volume 94.1 fL Mean Corpuscular Hemoglobin 31.8 pg Mean Corpuscular Hemoglobin Concent 33.8 g/dl RDW Standard Deviation 46.0 fL RDW Coefficient of Variation 13.3 % Platelet Count 162 K/uL Mean Platelet Volume 10.8 fL Sodium Level 136 mmol/L Potassium Level 4.3 mmol/L Chloride Level 108 mmol/L Carbon Dioxide Level 23 mmol/L Anion Gap 5.0 mmol/L Blood Urea Nitrogen 17 mg/dl Creatinine 0.77 mg/dl Est Creatinine Clear Calc Drug Dose 104.3 ml/min Estimated GFR () 93.3 Estimated GFR (Non- 80.5 BUN/Creatinine Ratio 21.4 Random Glucose 127 mg/dl Calcium Level 7.9 mg/dl Assessment and Plan 68 y/o female with a history of HTN, HLD, hypothyroidism, bipolar disorder, essential tremor, and GERD who presents s/p right TKA with Dr. Markham on 05/24 for medical management. S/p right TKA--POD #1 -Pain management, DVT prophylaxis, and PT/OT as per primary team HTN, HLD--stable -Continue amlodipine 5 mg PO qd and pravastatin 20 mg PO hs -Renal function stable, at baseline. Resume enalapril (subbed for benazepril) 10 mg PO BID -Cover with hydralazine 10 mg IV q6h prn SBP >180 Hypothyroidism--stable -TSH 3.05 05/18/18 -Continue Synthroid 112 mcg PO qd Bipolar disorder -Continue Lamictal 50 mg PO hs, Paxil 20 mg PO qd, Seroquel 200 mg PO hs GERD -Prilosec converted to Protonix Code Status -Level I, FULL RESUSCITATION STATUS Pt. is stable from a medical standpoint, we will sign off. Clear for discharge as per primary team.
[2018-05-25] MEDS: ENALAPRIL MALEATE 10 MG TAB PO SCH ×2 (10:11→20:35)
[2018-05-25] MEDS: ONDANSETRON INJ 2 MG/ML 2 ML VIAL IV PRN ×2 (10:22→16:14)
[2018-05-25 12:05] VITALS: BP 179/92; PULSE 78; TEMP 36.9; O2SAT 94
[2018-05-25 14:28] VITALS: BP 165/100
[2018-05-25 15:38] VITALS: BP 148/77; PULSE 75; TEMP 36.4; O2SAT 94
[2018-05-25] MEDS: QUETIAPINE FUMARATE 200 MG TAB PO SCH (20:35)
[2018-05-25] MEDS: PRAVASTATIN SOD 20 MG TAB PO SCH (20:35)
[2018-05-25] MEDS: SENNA 8.6 MG TAB PO SCH (20:36)
[2018-05-25 22:53] VITALS: BP 160/79; PULSE 76; TEMP 37; O2SAT 92
[2018-05-26] MEDS: OXYCODONE HCL IR 5 MG TAB (IMMEDIATE RELEASE) PO PRN ×4 (01:03→23:37)
[2018-05-26] MEDS: RIVAROXABAN 10 MG TAB PO SCH (05:54)
[2018-05-26] MEDS: ACETAMINOPHEN 500 MG TAB PO SCH ×3 (05:54→21:07)
[2018-05-26] MEDS: LEVOTHYROXINE 112 MCG TAB PO SCH (05:54)
[2018-05-26 06:38] VITALS: BP 147/84; PULSE 69; TEMP 36.9; O2SAT 91
[2018-05-26] MEDS: PAROXETINE 20 MG TAB PO SCH (07:29)
[2018-05-26] MEDS: ENALAPRIL MALEATE 10 MG TAB PO SCH ×2 (07:30→21:05)
[2018-05-26] MEDS: AMLODIPINE BESYLATE 5 MG TAB PO SCH (07:30)
[2018-05-26] MEDS: POTASSIUM CHLORIDE 10 MEQ TABCR PO SCH ×3 (07:30→21:06)
[2018-05-26] MEDS: MULTIVITAMIN TAB PO SCH (07:31)
[2018-05-26] MEDS: PANTOprazole SOD 40 MG TAB PO SCH (07:31)
[2018-05-26] MEDS: DOCUSATE SODIUM 100 MG CAP PO SCH ×2 (07:31→21:05)
--- NOTE | 2018-05-26 08:15 | Orthopedic Progress Note ---
Orthopedic Progress Note Date of Service May 26, 2018. Subjective Post OP Day: 2 Reports: feeling well Additional Notes: States she is feeling better than yesterday. Adjusting pain meds accordingly. No new complaints. Objective calves soft nontender, N/V intact, dressing C/D/I (Prevena intact), A&O x3, toes mobile Date Time Temp Pulse Resp B/P (MAP) Pulse Ox O2 Delivery O2 Flow Rate FiO2 05/26/18 07:36 Room Air 05/26/18 06:38 36.9 69 17 147/84 (105) 91 Room Air 05/25/18 22:53 37.0 76 17 160/79 (106) 92 Room Air 05/25/18 19:35 Room Air 05/25/18 15:38 36.4 75 16 148/77 (100) 94 Room Air 05/25/18 14:28 165/100 (121) 05/25/18 12:05 36.9 78 16 179/92 (121) 94 Room Air Assessment & Plan Assessment: POD 2 s/p Right TKA Plan: PT/OT Planning for HH PT Inhouse Planning Pain Management: Morphine, PO Tylenol, Oxy IR DVT Prophylaxis: TEDs, SCDs, Xarelto Discharge Planning Discharge Planning: home with home health
--- NOTE | 2018-05-26 08:19 | Discharge Instructions ---
Discharge Instructions Date of Service May 26, 2018. Admission Reason for Admission: Right Knee Degenerative Joint Disease Discharge Discharge Diagnosis / Problem: Right Knee Djd Discharge Goals Goal(s): Decrease discomfort, Improve function, Increase independence Activity Recommendations Activity Limitations: per Instructions/Follow-up section Weightbearing Status: Right weightbearing (as tolerated) . Instructions / Follow-Up Instructions / Follow-Up ACTIVITY RECOMMENDATIONS: SELF CARE INSTRUCTIONS AFTER TOTAL KNEE REPLACEMENT A. You may need to continue a physical therapy program after discharge from the hospital. There are several options available to you. Your doctor will assist you in selecting the best one for you. 1. An out-patient facility 2 to 3 times a week for therapy or home therapy. 2. Continue working on all exercises taught to you in the hospital. Your goals should be to increase bending of your knee to 90 degrees and beyond and to fully straighten your knee. B. You may progress at your own pace from walking with a walker or crutches to a cane; then to no assistive devices. C. Make walking a part of your daily routine. Be up as much as comfortable with rest periods throughout the day. Rest with leg elevation is very important. Use the ice wrap frequently for the first 3-4 weeks. D. There are no restrictions on activities. You may ride in a car, shop, participate in nurse prn and all social activities. E. Wear the long elastic stockings (SAMSON hose) 20 hours a day for 2 weeks after surgery. They can be removed several times a day for laundering and for a bath. F. You may shower, no tub baths until cleared by your doctor. SPECIAL CARE INSTRUCTIONS: VERY IMPORTANT TO READ AND REVIEW A. There are a few signs you need to watch for after you are home. Call [facility] if you notice any of the followin. Increased severe knee pain. Some pain is expected especially when you exercise. 2. Increased swelling in your leg or knee; pain or swelling of the calf muscle in either lower leg. 3. Any fluid drainage from the incision. 4. Shortness of breath or chest pain. B. Please call [facility] at if you have any concerns or questions about your operation or recovery. The doctor or his nurse will return your call promptly. C. You must take antibiotics before dental work, bladder, bowel or other surgery. Your doctor will provide you with a permanent care to carry describing this precaution. IMPORTANT: * REMEMBER TO TAKE XARELTO ONCE DAILY UNLESS OTHERWISE DIRECTED. THIS IS YOUR BLOOD THINNER. * HIGH RISK PATIENTS MAY BE PRESCRIBED A STRONGER BLOOD THINNER. THIS WILL BE PROVIDED AT DISCHARGE. * CALL IF INCREASED PAIN, REDNESS, DRAINAGE OR FEVER GREATER THAT 101. * WEAR SAMSON HOSE 20 HOURS PER DAY FOR 2 WEEKS. * YOU MAY HAVE A LARGE BAND-AID LIKE DRESSING (SILVERON). THIS WILL REMAIN ON YOUR INCISION FOR 7 DAYS, THEN CAN BE REMOVED. IF INCISION IS LEAKING THROUGH DRESSING, CALL THE OFFICE . FOLLOW UP VISIT: If appointment is not already scheduled: Please call [facility] to make a follow-up appointment for 2 weeks after your surgery at . Current Hospital Diet Patient's current hospital diet: Regular Diet Discharge Diet Recommended Diet: Regular Diet Procedures Procedures Performed: Right Total Knee Arthroplasty,increased difficulty due to morbid obesity bmi 44.9,application superficial wound vac Pending Studies Studies pending at discharge: no Laboratory Results Hemoglobin A1c Test 05/09/18 14:01 Range/Units Estimated Average Glucose 108 mg/dl Hemoglobin A1c 5.4 4.5-5.6 % Medical Emergencies . Who to Call and When: Medical Emergencies: If at any time you feel your situation is an emergency, please call 911 immediately. . Non-Emergent Contact Non-Emergency issues call your: Surgeon Call Non-Emergent contact if: temperature is above 101.5, your pain is not controlled, your pain is worsening, wound has increased drainage, wound has increased redness . "Provider Documentation" section prepared by Mumtaz Monteiro. . [place] Drug Monitoring Program Search Results: patient reviewed within database, no issues identified
[2018-05-26] MEDS ORDERED: RXC5 PO (08:21)
[2018-05-26] MEDS ORDERED: SENN-61 PO (08:21)
[2018-05-26] MEDS ORDERED: ACET-1256 PO (08:21)
[2018-05-26 08:52] LABS: HEMATOCRIT 33.5 % (37-47); HEMOGLOBIN 11.4 g/dL (12.0-16.0); MEAN CELL VOLUME 93.6 fL (80-100); MEAN CORPUSCULAR HEMOGLOBIN 31.8 pg (25-34); MEAN PLATELET VOLUME 10.3 fL (7.4-10.4); PLATELET COUNT 161 K/uL (130-400); RED CELL DISTRIBUTION WIDTH CV 13.3 % (11.5-14.5); RED CELL DISTRIBUTION WIDTH SD 45.9 fL (36.4-46.3); WHITE BLOOD COUNT 6.42 K/uL (4.8-10.8)
--- NOTE | 2018-05-26 10:09 | Hospitalist Progress Note ---
Hospitalist Progress Note Date of Service May 26, 2018. Subjective Pt evaluation today including: conversation w/ patient, physical exam, chart review, lab review, review of inpatient medication list Pain: Controlled PO Intake: Tolerating PO diet Voiding: no voiding problems Patient reports feeling better today. Yesterday after my visit she had nausea and vomiting throughout the day and did have times of intermittent confusion. Her Roxicodone was decreased from 2 tabs to 1 tab and she is now feeling much better. She denies any nausea or vomiting today. She is tolerating a PO diet and voiding on her own. She is passing gas but has not yet moved her bowels. The patient denies fevers, chills, sweats, chest pain, palpitations, claudication, cough, wheezing, shortness of breath, nausea, vomiting, abdominal pain, dysuria, hematuria, urinary retention, paralysis, weakness, numbness and tingling. Additional Comments: See HPI for pertinent positives and negatives. All other systems reviewed and negative. Objective Vital Signs Date Time Temp Pulse Resp B/P (MAP) Pulse Ox O2 Delivery O2 Flow Rate FiO2 05/26/18 07:36 Room Air 05/26/18 06:38 36.9 69 17 147/84 (105) 91 Room Air 05/25/18 22:53 37.0 76 17 160/79 (106) 92 Room Air 05/25/18 19:35 Room Air 05/25/18 15:38 36.4 75 16 148/77 (100) 94 Room Air 05/25/18 14:28 165/100 (121) 05/25/18 12:05 36.9 78 16 179/92 (121) 94 Room Air Physical Exam Notes: General appearance: +Morbidly obese. Well-developed, well-nourished, no apparent distress Head: Normocephalic, atraumatic Eyes: Normal inspection, PERRL, EOMI ENT: Normal ENT inspection, hearing grossly normal, pharynx normal Neck: Supple, no JVD, trachea midline Respiratory/Chest: Lungs clear to auscultation, normal breath sounds, no respiratory distress Cardiovascular: Regular rate & rhythm, no gallop, no murmur Abdomen/GI: Normal bowel sounds, non-tender, soft Extremities/Musculoskeletal: +Drain removed, dressing at that site saturated w/ blood. Nursing changed this to pressure dressing. Wound vac over right knee. No calf tenderness, no pedal edema Neurological/Psych: Alert, normal mood/affect, oriented x 3 Skin: Normal color, warm/dry, no rash Laboratory Results Last 24 Hours Test 05/26/18 08:42 White Blood Count 6.42 K/uL Red Blood Count 3.58 M/uL Hemoglobin 11.4 g/dL Hematocrit 33.5 % Mean Corpuscular Volume 93.6 fL Mean Corpuscular Hemoglobin 31.8 pg Mean Corpuscular Hemoglobin Concent 34.0 g/dl RDW Standard Deviation 45.9 fL RDW Coefficient of Variation 13.3 % Platelet Count 161 K/uL Mean Platelet Volume 10.3 fL Assessment and Plan 68 y/o female with a history of HTN, HLD, hypothyroidism, bipolar disorder, essential tremor, and GERD who presents s/p right TKA with Dr. Markham on 05/24 for medical management. S/p right TKA--POD #2 -Pain management, DVT prophylaxis, and PT/OT as per primary team Nausea, vomiting, confusion--resolved -Likely due to pain medications. This has since resolved since decreasing Roxicodone from 10 mg to 5 HTN, HLD--stable -Continue amlodipine 5 mg PO qd and pravastatin 20 mg PO hs -Renal function stable, at baseline. Resume enalapril (subbed for benazepril) 10 mg PO BID -Cover with hydralazine 10 mg IV q6h prn SBP >180 Hypothyroidism--stable -TSH 3.05 05/18/18 -Continue Synthroid 112 mcg PO qd Bipolar disorder -Continue Lamictal 50 mg PO hs, Paxil 20 mg PO qd, Seroquel 200 mg PO hs GERD -Prilosec converted to Protonix Code Status -Level I, FULL RESUSCITATION STATUS Pt. is stable from a medical standpoint, we will sign off. Clear for discharge as per primary team.
[2018-05-26 15:06] VITALS: BP 119/69; PULSE 65; TEMP 36.6; O2SAT 93
[2018-05-26 16:00] VITALS: O2SAT 93
[2018-05-26] MEDS: QUETIAPINE FUMARATE 200 MG TAB PO SCH (21:06)
[2018-05-26] MEDS: SENNA 8.6 MG TAB PO SCH (21:06)
[2018-05-26] MEDS: PRAVASTATIN SOD 20 MG TAB PO SCH (21:06)
[2018-05-26 22:57] VITALS: BP 134/78; PULSE 77; TEMP 36.8; O2SAT 95
[2018-05-26 23:30] VITALS: O2SAT 95
[2018-05-27] MEDS: ACETAMINOPHEN 500 MG TAB PO SCH (05:53)
[2018-05-27] MEDS: LEVOTHYROXINE 112 MCG TAB PO SCH (05:53)
[2018-05-27] MEDS: RIVAROXABAN 10 MG TAB PO SCH (05:53)
[2018-05-27] MEDS: OXYCODONE HCL IR 5 MG TAB (IMMEDIATE RELEASE) PO PRN ×2 (07:34→11:35)
[2018-05-27 08:35] VITALS: BP 133/82; PULSE 67; TEMP 36.6; O2SAT 94
[2018-05-27] MEDS: ENALAPRIL MALEATE 10 MG TAB PO SCH (09:05)
[2018-05-27] MEDS: PANTOprazole SOD 40 MG TAB PO SCH (09:05)
[2018-05-27] MEDS: MULTIVITAMIN TAB PO SCH (09:05)
[2018-05-27] MEDS: AMLODIPINE BESYLATE 5 MG TAB PO SCH (09:05)
[2018-05-27] MEDS: POTASSIUM CHLORIDE 10 MEQ TABCR PO SCH (09:05)
[2018-05-27] MEDS: DOCUSATE SODIUM 100 MG CAP PO SCH (09:05)
[2018-05-27] MEDS: PAROXETINE 20 MG TAB PO SCH (09:05)
--- NOTE | 2018-05-27 09:20 | Orthopedic Progress Note ---
Orthopedic Progress Note Date of Service May 27, 2018. Subjective Post OP Day: 3 Reports: feeling well, pain controlled w PO medications, Denies: chest pain, SOB , nausea / vomiting, light headedness, calf pain Objective calves soft nontender, N/V intact, capillary refill less than 2 sec., dressing C /D/I (prevena), A&O x3, toes mobile Date Time Temp Pulse Resp B/P (MAP) Pulse Ox O2 Delivery O2 Flow Rate FiO2 05/27/18 08:35 36.6 67 17 133/82 (99) 94 Room Air 05/27/18 07:28 Room Air 05/26/18 23:30 95 Room Air 2.0 05/26/18 22:57 36.8 77 17 134/78 (96) 95 Room Air 05/26/18 16:00 93 Room Air 05/26/18 15:06 36.6 65 18 119/69 (86) 93 Room Air Assessment & Plan Assessment: POD 3 s/p Right TKA Plan: PT/OT Planning for HH PT Inhouse Planning Pain Management: PO Tylenol, Oxy IR DVT Prophylaxis: TEDs, SCDs, Xarelto Discharge Planning Discharge Planning: home with home health DVT Prophylaxis: TEDs, Xarelto Therapy: Physical Therapy
[2018-05-27] MEDS ORDERED: XRL10 PO (09:26)
[2018-05-27 11:21] VITALS: BP 133/82; PULSE 67; TEMP 36.6; O2SAT 94
--- NOTE | 2018-05-27 17:48 | Discharge Summary ---
Orthopedic Discharge Summary Admission Date/Reason May 24, 2018 at 06:50 Right Knee Degenerative Joint Disease. Discharge Date/Disposition May 27, 2018 Home with services Diagnosis Principal Diagnosis: Right Knee Degenerative Joint Disease Secondary Diagnoses/Problems: -Hypertension -Hypothyroidism -Bipolar disorder -Essential tremor -GERD Procedure(s) Performed Right Total Knee Arthroplasty Consultations Dr. Kevon Butt of [facility] [place] Hospitalist service Medication Reconciliation New Medications: Oxycodone HCl (Oxycodone HCl) 5 Mg Tab 5 MG PO Q4H PRN for Pain, #30 TAB Rivaroxaban (Xarelto) 10 Mg Tab 10 MG PO Q24H for 10 Days, #10 TAB Senna (Senokot) 8.6 Mg Tab 17.2 MG PO HS, #30 TAB Changed Medications: Acetaminophen (Tylenol) 500 Mg Tab 1000 MG PO Q8H for 14 Days, #84 TAB (Changed from: PRN) Continued Medications: Amlodipine (Norvasc) 5 Mg Tab 5 MG PO QAM, TAB Benazepril (Lotensin) 10 Mg Tab 10 MG PO BID, TAB Cholecalciferol (Vitamin D) 2,000 Unit Cap 2000 UNITS BID Lamotrigine (Lamictal) 100 Mg Tab 50 MG PO QPM, TAB Levothyroxine Sodium (Synthroid) 112 Mcg Tab 112 MCG PO QAM, TAB Lorazepam (Ativan) 1 Mg Tab 1 MG PO PRN, TAB Multivitamin (Multivitamin) Tab 2 TAB PO QAM, TAB Omeprazole (Prilosec) 20 Mg Capcr 20 MG PO QAM, CAP Paroxetine (Paxil) 20 Mg Tab 20 MG PO QAM, TAB Potassium Chloride (Micro-K Ext Rel) 10 Meq Capcr 10 MEQ PO TID, CAP Pravastatin Sodium (Pravachol) 20 Mg Tab 20 MG PO QPM, TAB Quetiapine Fumarate (Seroquel) 200 Mg Tab 200 MG PO HS, TAB [Calcium] () 600 MG PO NOON/HS Admission Physical Exam As per Admitting History & Physical. Hospital Course Patient presented for same day admission following Right Total Knee Arthroplasty on 05/24/18. She tolerated procedure well. Post-operatively, her activity was progressed and well tolerated. Dr. Kevon Butt of medical service was consulted for medical management during admission. On POD#1 patient experienced some nausea and disorientation following administration of 10mg of oxycodone. Her dose was decreased to 5 mg and this was well tolerated. Please refer to daily progress notes and PT notes for complete details. After exam on , patient was felt to be stable for discharge home with home health services. She was discharged with Xarelto for DVT prophylaxis due to an NSAID allergy. Patient will f/u in the office with Dr. Markham or his PA in about 2 weeks for further evaluation including x-rays and incision check, sooner if having any issues or concerns. Discharge Instructions Please refer to the electronic Patient Visit Report (Discharge Instructions) for additional information.
== END 2018-05-27 11:52 | disposition home health service (06) | DRG 470 ==
LOC: C.ACU 05:06 → C.3E 06:50 → ENRESERV 10:50
PROVIDERS: ADMIT Orthopaedic Surgery Sports Medicine; ATTEND Orthopaedic Surgery Sports Medicine
PROC: 0SRC0J9 Replacement of Right Knee Joint with Synthetic Substitute, Cemented, Open Approach (ICD-10-PCS; principal; 2018-05-24 07:15)
DX: M17.11 Unilateral primary osteoarthritis, right knee (principal); Z68.41 Body mass index [BMI] 40.0-44.9, adult; I10 Essential (primary) hypertension; E03.9 Hypothyroidism, unspecified; F31.9 Bipolar disorder, unspecified; Z88.0 Allergy status to penicillin; Z88.1 Allergy status to other antibiotic agents; Z88.8 Allergy status to other drugs, medicaments and biological substances; E66.01 Morbid (severe) obesity due to excess calories; K21.9 Gastro-esophageal reflux disease without esophagitis; G25.0 Essential tremor; Z98.84 Bariatric surgery status; Z83.3 Family history of diabetes mellitus